=== PATIENT | female | born 1970 | race Caucasian/White ===

== ENCOUNTER → 2021-09-03 | Outpatient (CLI) | payer OTHER | LOC: LAB 12:54 | PROVIDERS: ATTEND Student in an Organized Health Care Education/Training Program | DX: Z20.822 Contact with and (suspected) exposure to COVID-19 (principal) ==

== ENCOUNTER → 2021-09-08 | Outpatient (CLI) | payer OTHER ==
[~2021-09-08] VITALS: Ht 172.7 cm; Wt 83.9 kg
[~2021-09-08] MED LIST: ASA81BEC PO; BYSTOLIC10 MG PO
--- NOTE | 2021-09-10 13:07 | PATH ---
[facility] [address] [place] [address] PATHOLOGY RPT PROCEDURE Name: PURA CARTER Room #: REG JEAN-CLAUDE Packer.#: [id number] Admission: 09/08/21 Date of : 70 Discharge: Report #: [id number] Path Case #: [id number] [facility] Accession Number: [id number] . 01 Material submitted: . sigmoid colon - SIGMOID POLYP . 01 Clinical history: . COLONOSCOPY RECTAL BLEEDING, +COLOGUARD, FAM HX COLON CANCER COLON POLYP . 02 Diagnosis: Sigmoid colon polyp, polypectomy: - Tubular adenoma with focal, surface high-grade dysplasia. - Cauterized resection margin is negative for adenomatous change, high-grade dysplasia or malignancy. (ANK:renato; 09/10/2021) MBR 09/10/2021 1052 Local . 02 Electronically signed: . Nat Velasquez MD, Pathologist NPI- [id number] . 01 Gross description: . The specimen is received in formalin, labeled "Pura Carter, sigmoid polyp". Received is a segment of dark brown tissue measuring 1.8 x 1.5 x 1.0 cm in greatest dimensions. The surgical margin is inked. The specimen is quadrisected perpendicular to the margin and entirely submitted in cassettes A1 and A2. Due to the nature of the specimen, fragmentation may occur upon processing. (CAA; 09/09/2021) QAC/QAC 09/09/2021 1025 Local . 02 Pathologist provided ICD-10: D12.5 . 02 CPT . 058290 Specimen Comment: A courtesy copy of this report has been sent to [phone] Specimen Comment: Report sent to Performed at: 01 [facility] [address] [facility] [address], [place] [id number] MD Pratik Roberts MD Phone: [phone] Performed at: 02 [facility] [address] [place] [address] PATHOLOGY RPT PROCEDURE Name: PURA CARTER Room #: REG CLAnthony Proctor.#: [id number] Admission: 09/08/21 Date of : 70 Discharge: Report #: [id number] Path Case #: [id number] [address] [place], [place] [id number] MD Nat Velasquez MD Phone: [phone]
== END | disposition home or self-care (01) ==
LOC: GI
PROVIDERS: ATTEND Internal Medicine
DX: R19.5 Other fecal abnormalities (principal); K62.5 Hemorrhage of anus and rectum; D12.5 Benign neoplasm of sigmoid colon; I10 Essential (primary) hypertension; I48.91 Unspecified atrial fibrillation; Z98.890 Other specified postprocedural states; Z79.899 Other long term (current) drug therapy; Z98.51 Tubal ligation status; Z79.82 Long term (current) use of aspirin; Z79.01 Long term (current) use of anticoagulants
CPT/HCPCS: 62110; 62900